=== PATIENT | female | born 1975 | race African-American/Black ===

== ENCOUNTER 2019-08-31 19:53 | Emergency (ER) | payer SELFPAY ==
--- NOTE | 2019-08-31 20:00 | EDM.PDOC ---
ED HPI GENERAL MEDICAL PROBLEM - General Chief Complaint: Lower Extremity Injury/Pain Stated Complaint: Left Knees injury Time Seen by Provider: 08/31/19 19:55 Source of Information: Reports: Patient. Denies: Old Records (No previous hospital records available.) History Limitations: Reports: No Limitations - History of Present Illness INITIAL COMMENTS - FREE TEXT/NARRATIVE: Patient drove herself to the emergency room via private automobile for evaluation of a Workmen's Compensation injury, which occurred at [facility] at about 18: 55 hours. 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 They did rinse out the laceration site and place a dressing prior to arrival to this facility with no previous injury to this area. No medications have been taken to this point. She denies any paresthesias, neurological deficits, or other complaints or injuries. No history of fall, etc. No recent history of abdominal pain, heartburn, nausea, diarrhea, melena, gross hematochezia, or any food intolerance, including fatty foods, etc.. The patient also denies any recent fever, cough, wheezing, dyspnea , etc.. Onset: Today, Sudden Onset Date: 08/31/19 Onset Time: 18:55 Duration: Constant Quality: Reports: Throbbing Severity: Moderate Improves with: Reports: Rest Worsens with: Reports: Movement Context: Reports: Trauma (As above) Associated Symptoms: Reports: No Other Symptoms. Denies: Confusion, Chest Pain , Cough, Diaphoresis, Fever/Chills, Headaches, Loss of Appetite, Nausea/Vomiting , Shortness of Breath, Syncope, Weakness Treatments MEDIA/INSTRUCTIONAL DESIGNER: Reports: Dressing(s) Left Knee Pain Score (Numeric/FACES): 5 - Related Data Allergies Allergy/AdvReac Type Severity Reaction Status Date / Time No Known Allergies Allergy Verified 08/31/19 19:57 Home Meds: Home Meds Acetaminophen [Tylenol] 650 mg PO Q4HR PRN 08/31/19 [History] Past Medical History HEENT History: Reports: Impaired Vision, Other (See Below) Other HEENT History: Patient wears glasses. Musculoskeletal History: Reports: Arthritis, Osteoarthritis Endocrine/Metabolic History: Reports: Obesity/BMI 30+ Social & Family History - Living Situation & Occupation Occupation: Employed ([employer]PER[employer]) Review of Systems - Review of Systems Review Of Systems: Comprehensive ROS is negative, except as noted in HPI. ED EXAM, GENERAL - Physical Exam Exam: See Below Exam Limited By: No Limitations General Appearance: Alert, WD/WN, No Apparent Distress Head: Atraumatic, Normocephalic. No: Facial Swelling, Facial Tenderness, Sinus Tenderness Neck: Normal Inspection, Supple, Non-Tender, Full Range of Motion. No: Lymphadenopathy (L), Lymphadenopathy (R), Thyromegaly Respiratory/Chest: No Respiratory Distress, Lungs Clear, Normal Breath Sounds, No Accessory Muscle Use, Chest Non-Tender. No: Pleural Rub, Retractions Cardiovascular: Normal Peripheral Pulses, Regular Rate, Rhythm, No Edema, No Gallop, No JVD, No Murmur, No Rub. No: Gallop/S3, Gallop/S4, Friction Rub Peripheral Pulses: 2+: Radial (L), Radial (R) GI/Abdominal: Normal Bowel Sounds, Soft, Non-Tender, No Organomegaly, No Distention, No Abnormal Bruit, No Mass, Pelvis Stable, Other (Obese). No: Guarding (Female) Exam: Deferred Rectal (Female) Exam: Deferred Back Exam: Normal Inspection, Full Range of Motion. No: CVA Tenderness (L), CVA Tenderness (R), Muscle Spasm Extremities: Normal Range of Motion, No Pedal Edema, Normal Capillary Refill, Leg Pain (At laceration site), Other (4 cm in length laceration over the left patella with no foreign body or evidence of significant injury knee effusion, knee instability, etc.). No: Eliot's Sign Neurological: Alert, Oriented, CN II-XII Intact, Normal Cognition, Normal Gait, No Motor/Sensory Deficits Psychiatric: Normal Affect, Normal Mood Skin Exam: Wound/Incision (As above) Lymphatic: No Adenopathy ED TRAUMA EXTREMITY PROCEDURES - Laceration/Wound Repair Left Knee Lac/Wound Length In cm: 3.0 Appearance: Subcutaneous, Clean Distal NVT: Neuro & Vascular Intact, No Tendon Injury Anesthetic Type: Local Local Anesthesia - Lidocaine (Xylocaine): 1% Plain Local Anesthetic Volume: Other (7cc) Skin Prep: Providone-Iodine (Betadine) Saline Irrigation (cc's): 0 Exploration/Debridement/Repair: Wound Explored, In a Bloodless Field, Explored to Base, No Foreign Material Found Closed With: Sutures Suture Size: 4-0 # of Sutures: 7 Suture Type: Nylon, Interrupted, Simple Drain Placement: No Sterile Dressing Applied: Nurse Tetanus Status Addressed: Yes Complications: No Course - Vital Signs Last Recorded V/S: Last Vital Signs Temp 36.3 C 08/31/19 20:18 Pulse 95 08/31/19 20:18 Resp 15 08/31/19 20:18 BP 153/86 H 08/31/19 20:18 Pulse Ox 98 08/31/19 20:18 Vital Signs - 24 hr 08/31/19 20:18 Temperature [ 36.3 C Temporal] Pulse, 95 Peripheral [ Right Pulse Oximetry] Respiratory 15 Rate Blood Pressure 153/86 H [Left Upper Arm ] O2 Sat by Pulse 98 Oximetry - Orders/Labs/Meds Orders: Active Orders 24 hr Category Date Time Status Vaccines to be Administered [RC] PER UNIT ROUTINE Care 08/31/19 20:02 Active Durable Medical Equipment for Discharge [DME for Oth 08/31/19 20:45 Ordered Discharge] [COMM] Routine Obtain Past Medical Record [OM.PC] Routine Oth 08/31/19 20:01 Active Labs: None Meds: Medications Discontinued Medications Generic Name Dose Route Start Last Admin Trade Name Freq PRN Reason Stop Dose Admin Diphtheria/Tetanus/Acell Pertussis 0.5 ml 08/31/19 20:02 08/31/19 20:33 Adacel IM 08/31/19 20:03 0.5 ml .ONCE ONE Administration Lidocaine HCl 5 ml 08/31/19 20:01 Xylocaine-Mpf 1% INJECT 08/31/19 20:02 ONETIME ONE Lidocaine HCl 5 ml 08/31/19 20:02 Xylocaine-Mpf 1% INJECT 08/31/19 20:03 ONETIME ONE Neomycin/Polymyxin/Bacitracin 1 each 08/31/19 20:01 08/31/19 20:24 Triple Antibiotic Oint TOP 08/31/19 20:02 1 each ONETIME ONE Administration - Radiology Interpretation Free Text/Narrative:: None Departure - Departure Time of Disposition: 20:55 Disposition: Home, Self-Care 01 Condition: Good Clinical Impression: Laceration, Elevated blood pressure reading - Discharge Information *PRESCRIPTION DRUG MONITORING PROGRAM REVIEWED*: Not Applicable *COPY OF PRESCRIPTION DRUG MONITORING REPORT IN PATIENT BERTRAM: Not Applicable Instructions: Laceration Care, Adult, [id number], Stitches, Trell, or Adhesive Wound Closure, [id number] Forms: ED Department Discharge, ED Return to Work/School Form Additional Instructions: 1. Followup with your regular provider in 10-14 days as directed for reevaluation and removal of 7 stitches. Bring these discharge instructions with you to that visit. 2. Tylenol 650 mg by mouth every 4 hours and/or OTC ibuprofen 2-3 tabs by mouth every 6 hours with food as directed./needed. You may stagger these medications for 48-72 hours only, which essentially means that you are receiving a pain medication about every 2 hours. 3. Antibacterial soap wash/soak with subsequent antibacterial dressing such as Neosporin, etc. as directed 2 times per day until the wound or laceration site completely heals. Keep the area clean and dry with activity restrictions as discussed. Never use hydrogen peroxide for wound care. 4. Work excuse- See Form 5. Continue to observe your blood pressures closely through your regular provider. 6. Immediately after this visit verify that your cellular telephone's voicemail has been activated and is empty. Also verify that your home telephone 's answering machine is operating properly and has space to receive messages. Note that it is sometimes necessary for us to be able to contact you at a later date to discuss your medical care. 7. Please remember that we are ALWAYS here for you and want to answer any questions you may have. Feel free to call the hospital any time and we call you back GLORIA. Sepsis Event Note - Focused Exam Vital Signs: Vital Signs Temp Pulse Resp BP Pulse Ox 08/31/19 20:18 36.3 C 95 15 153/86 H 98 Date Exam was Performed: 08/31/19 Time Exam was Performed: 21:20 - Problem List & Annotations (1) Laceration SNOMED Code(s): 598910040 Code(s): DHD1139 - Status: Acute Priority: High Onset Date: 08/31/19 Annotation/Comment:: Excellent results with laceration repair as above. Wound care and activity restrictions were discussed. The patient was provided a knee sleeve in order to avoid bending her knee and tearing her sutures. Work excuse and Workmen's Compensation forms were completed. Her last tetanus booster was more than 10 years ago by her history [place]. TDAP was given. (2) Elevated blood pressure reading SNOMED Code(s): 23501070 Code(s): R03.0 - ELEVATED BLOOD-PRESSURE READING, W/O DIAGNOSIS OF HTN Status: Acute Priority: Medium Onset Date: 08/31/19 Annotation/Comment:: Likely situational. Continue to observe closely by her regular providers with no previous history of hypertension. - Problem List Review Problem List Initiated/Reviewed/Updated: Yes - My Orders Last 24 Hours: My Active Orders 08/31/19 20:01 Obtain Past Medical Record [OM.PC] Routine 08/31/19 20:02 Vaccines to be Administered [RC] PER UNIT ROUTINE 08/31/19 20:45 Durable Medical Equipment for Discharge [DME for Discharge] [COMM] Routine - Assessment/Plan Last 24 Hours: My Active Orders 08/31/19 20:01 Obtain Past Medical Record [OM.PC] Routine 08/31/19 20:02 Vaccines to be Administered [RC] PER UNIT ROUTINE 08/31/19 20:45 Durable Medical Equipment for Discharge [DME for Discharge] [COMM] Routine Assessment:: As above Plan: As above. Extensive precautions were given to the patient, who is in agreement with the treatment plan. See Patient Instructions for further treatment and plan.
[2019-08-31] MEDS: Bacitracin/Neomycin/Polymyxin B Oint 0.9 GM U/D Packet TOP ONE (20:24)
[2019-08-31] MEDS: Diphtheria,Pertussis(Acell),Tetanus Vaccine 0.5 ML SDV IM ONE (20:33)
== END 2019-08-31 20:55 | disposition home or self-care (01) ==
LOC: LL.ED 19:53
DX: S81.012A Laceration without foreign body, left knee, initial encounter (principal); R03.0 Elevated blood-pressure reading, without diagnosis of hypertension; Z23 Encounter for immunization; M19.90 Unspecified osteoarthritis, unspecified site; E66.9 Obesity, unspecified; Z68.34 Body mass index [BMI] 34.0-34.9, adult; W23.0XXA Caught, crushed, jammed, or pinched between moving objects, initial encounter; Y99.0 Civilian activity done for income or pay
CPT/HCPCS: 12002; 90471; 90715; 99282; J2001